=== PATIENT | female | born 1980 | race African-American/Black ===

== ENCOUNTER 2023-01-22 13:40 | Outpatient (RCR) | payer MEDICAID, SELFPAY ==
--- NOTE | 2023-01-22 17:12 | OPREHPOC ---
Outpatient Therapy Plan of Care This is a Multidisciplinary Plan of Care that may contain components documented by all disciplines (PT, OT, and ST.) PT Problem 1 PT Problem #1 Knowledge Deficit PT Goal 1 Goal Pt to be IND with issued HEP Target Visit 8 PT Problem 2 PT Problem #2 Pain PT Goal 1 Goal Pt to report knee pain no greater than 3/10 in the last week. Target Visit 8 PT Goal 2 Goal Pt to report 75% improvement in overall symptoms. Target Visit 8 PT Problem 3 PT Problem #3 Impaired Range of Motion PT Goal 1 Goal Pt to improve L knee active flexion to 130 deg and extension to 0. Target Visit 8 PT Problem 4 PT Problem #4 Impaired Functional Mobil PT Goal 1 Goal Pt to report no increase in pain with a functional squat Target Visit 8 PT Goal 2 Goal Pt to report no increase in pain with stair navigation. Target Visit 8
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
--- NOTE | 2023-01-24 09:37 | PCPTNOTE ---
Unable to get authorization on patient. Patient was canceled this date.
--- NOTE | 2023-01-28 14:39 | PTOPDC ---
Assessment and note entered by Krista Feliz, PT, DPT Evaluation Information Assessment Status Discharge - Pt Not Present Diagnosis L patellofemoral pain Onset 1 year Subjective Information Pts insurance denied coverage. Assessment PT Clinical Summary Tawnya was seen for her initial evaluation on 01/22 and did not complete subsequent treatments d/t insurance denial.
== END 2023-02-21 09:05 | disposition home or self-care (01) ==
LOC: ANHGOSHPT 13:40
DX: M22.2X2 Patellofemoral disorders, left knee (principal)
CPT/HCPCS: 97110; 97161